=== PATIENT | male | born 1950 | race Hispanic/Latino ===

== ENCOUNTER 2019-04-14 07:18 | Inpatient (IN) | payer OTHER ==
[~2019-04-14] VITALS: Ht 172.7 cm; Wt 78.6 kg
[~2019-04-14 07:18] MED LIST: ASPI-1181 PO; ATOR40TA71 PO; HYDR25TA PO; LISI40TA4 PO; METO-408 PO
[2019-04-14 07:56] LABS: HEMATOCRIT 42.1 % (42-54); LYMPHOCYTES % (AUTO) 20.2 % (21.0-51.0); MEAN CORPUSCULAR HEMOGLOBIN 29.8 pg (27.0-33.0); MEAN CORPUSCULAR HGB CONC 33.5 g/dL (32.0-36.0); MEAN CORPUSCULAR VOLUME 89.1 fL (79-99); MONOCYTES % (AUTO) 8.5 % (3.0-13.0); NEUTROPHILS % (AUTO) 66.3 % (40.0-77.0); NUCLEATED RED BLOOD CELLS 0.1 % (0.0-0.19); PLATELET COUNT (AUTO) 167 K/uL (130-400); RED BLOOD CELL COUNT(AUTO) 4.72 MIL/uL (4.50-6.20); RED CELL DISTRIBUTION WIDTH 15.5 % (11.0-15.5); WHITE BLOOD COUNT (AUTO) 7.3 K/uL (4.8-10.8)
[2019-04-14 08:07] LABS: POTASSIUM 3.1 mmol/L (3.5-5.1)
[2019-04-14] MEDS ORDERED: FUROSEMIDE 10 MG/ML 2ML VIAL ONE ×2 (08:07→23:53)
[2019-04-14] MEDS ORDERED: FUROSEMIDE 10 MG/ML 4ML VIAL ONE (08:08)
[2019-04-14] MEDS ORDERED: ASPIRIN 325 MG TABLET ONE (08:08)
[2019-04-14 08:10] LABS: INR 1.15 (0.85-1.15)
[2019-04-14 08:14] LABS: BILIRUBIN,TOTAL 1.1 mg/dL (0.2-1.0)
[2019-04-14 09:15] LABS: B-TYPE NATRIURETIC PEPTIDE 1100 pg/mL (0-100)
[2019-04-14 09:22] LABS: APPEARANCE,URINE Clear (CLEAR); BILIRUBIN,URINE Small (NEGATIVE); COLOR,URINE Dark Yellow (YELLOW); GLUCOSE, URINE (UA) Negative (NEGATIVE); KETONES,URINE Negative (NEGATIVE); LEUKOCYTE ESTERASE ,URINE Negative (NEGATIVE); NITRATE,URINE Negative (NEGATIVE); OCCULT BLOOD,URINE Negative (NEGATIVE); PROTEIN,URINE POS 2+ mg/dL (NEGATIVE)
[2019-04-14 09:40] LABS: BACTERIA,URINE Few /HPF (None Seen); RBC,URINE 0-1 /HPF (0-1); SQUAMOUS EPITHELIAL CELL,UR 0-2 /HPF (0-2)
[2019-04-14] MEDS ORDERED: NITROGLYCERIN 1GM/1 INCH PACKET TD ONE (10:01)
[2019-04-14] MEDS ORDERED: POTASSIUM BICARB/CIT AC 25 MEQ TABLET.EFF ONE (10:02)
[2019-04-14 10:11] LABS: AMPHET/METH SCREEN,URINE NEGATIVE (NEGATIVE); BARBITURATE SCREEN, URINE NEGATIVE (NEGATIVE); BENZODIAZEPINES SCREEN,URINE NEGATIVE (NEGATIVE); CANNABINOID SCREEN,URINE NEGATIVE (NEGATIVE); COCAINE SCREEN,URINE NEGATIVE (NEGATIVE); OPIATE SCREEN,URINE NEGATIVE (NEGATIVE); PHENCYCLIDINE SCREEN,URINE NEGATIVE (NEGATIVE)
[2019-04-14] MEDS ORDERED: HYDRALAZINE HCL 20 MG/ML VIAL ONE (10:13)
[2019-04-14] MEDS ORDERED: ACETAMINOPHEN 325 MG TAB PO PRN (11:00)
[2019-04-14] MEDS ORDERED: ONDANSETRON HCL 4 MG/2 ML VIAL IVP PRN (11:00)
[2019-04-14] MEDS: FUROSEMIDE 10 MG/ML 2ML VIAL IV SCH ×2 (12:00→20:00)
[2019-04-14] MEDS ORDERED: PHARMACY COMMUNICATION MISC SCH (13:15)
[2019-04-14] MEDS ORDERED: METOPROLOL TARTRATE 25 MG TAB PO SCH (13:23)
[2019-04-14] MEDS ORDERED: ENOXAPARIN SODIUM 100 MG/1 ML SQ ONE (15:22)
[2019-04-14] MEDS ORDERED: METOPROLOL TARTRATE 25 MG TAB ONE (15:22)
[2019-04-14 15:45] LABS: CREATINE KINASE, TOTAL 130 U/L (21-232); MYOGLOBIN 63 ng/mL (10-92); TROPONIN I < 0.04 ng/mL (0.00-0.06)
[2019-04-14] MEDS: METOPROLOL TARTRATE 25 MG TAB PO SCH (21:00)
[2019-04-14] MEDS: FAMOTIDINE 20MG TAB 20 MG TAB PO SCH (21:00)
[2019-04-14] MEDS: ATORVASTATIN CALCIUM 40 MG TABLET PO SCH (21:00)
[2019-04-14] MEDS ORDERED: FUROSEMIDE 10 MG/ML 2ML VIAL IV SCH (21:00)
[2019-04-14] MEDS ORDERED: FAMOTIDINE/PF 20 MG/2 ML VIAL IV ONE (23:54)
[2019-04-15] VITALS (8 sets, daily range): BP systolic 117–162; BP diastolic 73–107
[2019-04-15 00:39] LABS: TROPONIN I 0.05 ng/mL (0.00-0.06)
[2019-04-15] MEDS ORDERED: FUROSEMIDE 10 MG/ML 2ML VIAL IV SCH ×2 (06:00→08:00)
[2019-04-15 06:22] LABS: BASOPHILS % (AUTO) 0.7 % (0.0-5.0); EOSINOPHILS % (AUTO) 4.4 % (0.0-8.0); HEMATOCRIT 38.4 % (42-54); MEAN CORPUSCULAR HEMOGLOBIN 30.8 pg (27.0-33.0); MEAN CORPUSCULAR HGB CONC 34.7 g/dL (32.0-36.0); MEAN CORPUSCULAR VOLUME 88.8 fL (79-99); MONOCYTES % (AUTO) 8.5 % (3.0-13.0); NEUTROPHILS % (AUTO) 68.4 % (40.0-77.0); NUCLEATED RED BLOOD CELLS 0.1 % (0.0-0.19); PLATELET COUNT (AUTO) 160 K/uL (130-400); RED BLOOD CELL COUNT(AUTO) 4.32 MIL/uL (4.50-6.20); RED CELL DISTRIBUTION WIDTH 15.8 % (11.0-15.5); WHITE BLOOD COUNT (AUTO) 7.4 K/uL (4.8-10.8)
[2019-04-15 06:26] LABS: B-TYPE NATRIURETIC PEPTIDE 656 pg/mL (0-100)
[2019-04-15 06:40] LABS: CREATINE KINASE, TOTAL 98 U/L (21-232); MYOGLOBIN 66 ng/mL (10-92); TROPONIN I < 0.04 ng/mL (0.00-0.06)
[2019-04-15 06:45] LABS: CREATININE 1.1 mg/dL (0.5-1.5)
[2019-04-15 06:53] LABS: POTASSIUM 2.9 mmol/L (3.5-5.1)
[2019-04-15] MEDS ORDERED: POTASSIUM CHLORIDE 20MEQ/100ML 100 ML IV PRN (08:00)
[2019-04-15] MEDS ORDERED: POTASSIUM CHLORIDE 10% ELIXIR 20 MEQ/15 ML UDCUP PO PRN (08:00)
[2019-04-15] MEDS ORDERED: LIDOCAINE HCL-MPF 1% 2ML VIAL IV PRN (08:00)
[2019-04-15] MEDS ORDERED: ENOXAPARIN SODIUM 30 MG/0.3 ML SQ SCH (09:00)
[2019-04-15] MEDS: METOPROLOL TARTRATE 25 MG TAB PO SCH ×2 (09:27→21:32)
[2019-04-15] MEDS: FAMOTIDINE 20MG TAB 20 MG TAB PO SCH ×2 (09:27→21:32)
[2019-04-15] MEDS: ASPIRIN 81 MG EC TAB PO SCH (09:27)
[2019-04-15] MEDS: POTASSIUM CHLORIDE 20 MEQ ERTAB PO PRN ×4 (09:28→17:29)
[2019-04-15] MEDS: ENOXAPARIN SODIUM 80 MG/0.8 ML SQ SCH ×2 (09:28→21:36)
--- NOTE | 2019-04-15 13:10 | NUR ---
D/C PLAN CM spoke to pt regarding d/c planning. Pt is ind. and lives with spouse. States spouse can assist in care as needed. Plan to home. No needs verbalized or identified. CM to f/u. Addendum: 04/15/19 at 1311 by YOLANDA KENNEDY CM Amended: Links added.
[2019-04-15] MEDS: LISINOPRIL 5 MG TABLET PO SCH (21:32)
[2019-04-15] MEDS: ATORVASTATIN CALCIUM 40 MG TABLET PO SCH (21:32)
[2019-04-16] VITALS (7 sets, daily range): BP systolic 106–184; BP diastolic 67–113
[2019-04-16 04:53] LABS: CREATININE 1.1 mg/dL (0.5-1.5); POTASSIUM 3.4 mmol/L (3.5-5.1)
[2019-04-16] MEDS: FAMOTIDINE 20MG TAB 20 MG TAB PO SCH ×2 (09:10→21:21)
[2019-04-16] MEDS: METOPROLOL TARTRATE 25 MG TAB PO SCH ×2 (09:10→21:21)
[2019-04-16] MEDS: ASPIRIN 81 MG EC TAB PO SCH (09:10)
[2019-04-16] MEDS: LISINOPRIL 5 MG TABLET PO SCH ×2 (09:11→21:21)
[2019-04-16] MEDS: ENOXAPARIN SODIUM 80 MG/0.8 ML SQ SCH ×2 (09:12→21:22)
[2019-04-16] MEDS ORDERED: REGADENOSON 0.4 MG/5 ML PF SYG IVP SCH (14:45)
[2019-04-16] MEDS: HYDRALAZINE HCL 20 MG/ML VIAL IV PRN ×2 (15:40→18:40)
[2019-04-16] MEDS: POTASSIUM CHLORIDE 20 MEQ ERTAB PO PRN (18:46)
[2019-04-16] MEDS: ATORVASTATIN CALCIUM 40 MG TABLET PO SCH (21:21)
[2019-04-17 04:35] VITALS: BP 147/93
[2019-04-17 07:59] VITALS: BP 145/95
[2019-04-17] MEDS ORDERED: FUROSEMIDE 10 MG/ML 2ML VIAL IV SCH (08:15)
[2019-04-17] MEDS: FUROSEMIDE 10 MG/ML 2ML VIAL IV SCH ×4 (08:30→21:00)
--- NOTE | 2019-04-17 08:30 | NUR ---
AM ASSESSMENT PT SITTING IN HAIR, WATCHING TV. A/O X 3. NO SOB. NO DISTRESS NOTED. DENIES CHEST PAIN OR DISCOMFORT. DENIES PALPITATIONS. TELE: AFIB 70s. DENIES N/V AND/ OR DIARRHEA. UP AD JENA. INSTRUCTED TO CALL FOR ASSISTANCE. CALL DIANA W/IN REACH.
[2019-04-17] MEDS: FAMOTIDINE 20MG TAB 20 MG TAB PO SCH ×2 (09:22→21:01)
[2019-04-17] MEDS: LISINOPRIL 5 MG TABLET PO SCH ×2 (09:22→21:01)
[2019-04-17] MEDS: METOPROLOL TARTRATE 25 MG TAB PO SCH ×2 (09:22→21:02)
[2019-04-17] MEDS: APIXABAN 5 MG TABLET PO SCH ×2 (09:22→21:01)
[2019-04-17] MEDS: SPIRONOLACTONE 25 MG TAB PO SCH (09:23)
[2019-04-17] MEDS: ASPIRIN 81 MG EC TAB PO SCH (09:23)
[2019-04-17] MEDS: POTASSIUM CHLORIDE 20 MEQ ERTAB PO PRN ×2 (09:24→14:04)
[2019-04-17 12:16] VITALS: BP 156/88
[2019-04-17 16:09] VITALS: BP 133/74
[2019-04-17 19:50] VITALS: BP 131/101
[2019-04-17] MEDS: ATORVASTATIN CALCIUM 40 MG TABLET PO SCH (21:01)
[2019-04-18 00:06] VITALS: BP 153/72
[2019-04-18 03:24] VITALS: BP 153/57
[2019-04-18 04:29] LABS: BASOPHILS % (AUTO) 0.6 % (0.0-5.0); EOSINOPHILS % (AUTO) 2.3 % (0.0-8.0); HEMATOCRIT 38.9 % (42-54); LYMPHOCYTES % (AUTO) 17.1 % (21.0-51.0); MEAN CORPUSCULAR HEMOGLOBIN 30.3 pg (27.0-33.0); MEAN CORPUSCULAR HGB CONC 34.2 g/dL (32.0-36.0); MEAN CORPUSCULAR VOLUME 88.8 fL (79-99); NUCLEATED RED BLOOD CELLS 0.1 % (0.0-0.19); PLATELET COUNT (AUTO) 177 K/uL (130-400); RED BLOOD CELL COUNT(AUTO) 4.39 MIL/uL (4.50-6.20); WHITE BLOOD COUNT (AUTO) 6.9 K/uL (4.8-10.8)
[2019-04-18 04:38] LABS: CREATININE 0.9 mg/dL (0.5-1.5); MAGNESIUM 1.8 mg/dL (1.80-2.40); PHOSPHORUS 4.1 mg/dL (2.5-4.9); POTASSIUM 3.5 mmol/L (3.5-5.1)
[2019-04-18 04:52] LABS: B-TYPE NATRIURETIC PEPTIDE 531 pg/mL (0-100)
[2019-04-18] MEDS: POTASSIUM CHLORIDE 20 MEQ ERTAB PO PRN ×3 (06:30→12:38)
[2019-04-18] MEDS ORDERED: METO-391 PO (06:46)
[2019-04-18] MEDS ORDERED: SPIR25TA PO (06:46)
[2019-04-18] MEDS ORDERED: APIX5TAB PO (06:46)
[2019-04-18] MEDS ORDERED: LISI-613 PO (06:46)
[2019-04-18 07:00] VITALS: BP 163/98
--- NOTE | 2019-04-18 07:23 | NUR ---
Patient remained stable, bedside report given to incoming NOD using SBAr all questions answered.
--- NOTE | 2019-04-18 07:30 | NUR ---
AM ASSESSMENT PT AMBULATING IN RM. A/O X 3. NO SOB. NO DISTRESS NOTED. DENIES CHEST PAIN OR DISCOMFORT. DENIES PALPITATIONS. TELE: AFIB 70-80s. DENIES N/V AND/OR DIARRHEA. UP AD JENA. PT CLEARED BY DR HERNANDEZ TO DC HOME TODAY. PT INFORMED DR GOMEZ PRIMARY PHYSICIAN AND PENDING DC ORDER FROM . UP AD JENA. INSTRUCTED TO CALL FOR ASSISTANCE. CALL DIANA W/IN ILIA.
[2019-04-18] MEDS: SPIRONOLACTONE 25 MG TAB PO SCH (08:58)
[2019-04-18] MEDS: FAMOTIDINE 20MG TAB 20 MG TAB PO SCH (08:58)
[2019-04-18] MEDS: APIXABAN 5 MG TABLET PO SCH (08:58)
[2019-04-18] MEDS: ASPIRIN 81 MG EC TAB PO SCH (08:59)
[2019-04-18] MEDS: LISINOPRIL 5 MG TABLET PO SCH (08:59)
[2019-04-18] MEDS: METOPROLOL TARTRATE 25 MG TAB PO SCH (08:59)
[2019-04-18] MEDS ORDERED: FUROSEMIDE 40 MG TABLET PO SCH (09:00)
[2019-04-18 11:00] VITALS: BP 149/88
--- NOTE | 2019-04-18 14:25 | NUR ---
DISCHARGE VERBAL & WRITTEN DISCHARGE INSTRUCTIONS REVIEWED & GIVEN TO PT & PT'S SON. QUESTIONS ENCOURAGED & CLARIFIED. PROPER CARE & MGT OF CHF REVIEWED & REINFORCED. NEW PRESCRIBED MEDICATIONS & DOSE CHANGES IN HOME MEDICATIONS REVIEWED W/PT. PRESCRIPTION GIVEN TO PT; SIGNED COPY PLACED IN CHART. F/U APPT INFO GIVEN TO PT. TELE PILI REMOVED. IV DISCONTINUED. PT & SON TO GATHER PERSONAL BELONGINGS. WILL NOTIFY STAFF WHEN READY TO BE TAKEN TO PRIVATE VEHICLE.
--- NOTE | 2019-04-18 14:35 | NUR ---
DISCHARGE PT TAKEN TO PRIVATE VEHICLE VIA WC BY Daljit AMES PCP. SON AWAITING FOR PT IN VEHICLE. NO DISTRESS NOTED.
== END 2019-04-18 14:35 | disposition home or self-care (01) | DRG 291 ==
LOC: EDH 07:18 → EDHIP 10:06 → 2AH 04-15 01:09
PROVIDERS: ADMIT Internal Medicine; ATTEND Internal Medicine
DX: I11.0 Hypertensive heart disease with heart failure (principal); I50.21 Acute systolic (congestive) heart failure; D68.59 Other primary thrombophilia; I48.92 Unspecified atrial flutter; I48.91 Unspecified atrial fibrillation; I25.10 Atherosclerotic heart disease of native coronary artery without angina pectoris; F17.200 Nicotine dependence, unspecified, uncomplicated; E78.5 Hyperlipidemia, unspecified; E87.6 Hypokalemia; N48.1 Balanitis; M54.30 Sciatica, unspecified side; I25.5 Ischemic cardiomyopathy; Z95.1 Presence of aortocoronary bypass graft; Z82.3 Family history of stroke; Z82.49 Family history of ischemic heart disease and other diseases of the circulatory system; Z88.6 Allergy status to analgesic agent; Z88.8 Allergy status to other drugs, medicaments and biological substances; Z91.19 Patient's noncompliance with other medical treatment and regimen; I25.2 Old myocardial infarction; Z95.5 Presence of coronary angioplasty implant and graft; Z79.82 Long term (current) use of aspirin; Z79.01 Long term (current) use of anticoagulants; Z79.899 Other long term (current) drug therapy
CPT/HCPCS: 36415; 71045; 71046; 78452; 80048; 80053; 80061; 80305; 81001; 82550; 83735; 83874; 83880; 84100; 84443; 84484; 85025; 85610; 85730; 93005; 93017; 93306; 96374; 99291; A9500; G0378; J0360; J1650; J1940; J2785; J3490

== ENCOUNTER → 2019-06-30 | Outpatient (CLI) | payer OTHER ==
[~2019-06-30] MED LIST changes: +APIX5TAB PO; -HYDR25TA PO; +LISI-613 PO; -LISI40TA4 PO; +METO-391 PO; -METO-408 PO; +SPIR25TA PO
== END | disposition home or self-care (01) ==
LOC: SHCH 11:06
PROVIDERS: ATTEND Internal Medicine Cardiovascular Disease
DX: I08.3 Combined rheumatic disorders of mitral, aortic and tricuspid valves (principal); I25.5 Ischemic cardiomyopathy
CPT/HCPCS: 93306

== ENCOUNTER 2019-08-27 06:08 | Inpatient (IN) | payer OTHER ==
[~2019-08-27] VITALS: Ht 172.7 cm; Wt 80.6 kg
[2019-08-27] MEDS ORDERED: NITROGLYCERIN 1GM/1 INCH PACKET TD ONE ×4 (06:22→15:03)
[2019-08-27] MEDS ORDERED: ASPIRIN 325 MG TABLET ONE (06:22)
[2019-08-27] MEDS ORDERED: FUROSEMIDE 10 MG/ML 4ML VIAL ONE (06:22)
[2019-08-27 06:39] LABS: BASOPHILS % (AUTO) 0.3 % (0.0-5.0); EOSINOPHILS % (AUTO) 0.4 % (0.0-8.0); HEMATOCRIT 42.9 % (42-54); LYMPHOCYTES % (AUTO) 9.7 % (21.0-51.0); MEAN CORPUSCULAR HEMOGLOBIN 28.4 pg (27.0-33.0); MEAN CORPUSCULAR HGB CONC 32.2 g/dL (32.0-36.0); MEAN CORPUSCULAR VOLUME 88.3 fL (79-99); MONOCYTES % (AUTO) 9.3 % (3.0-13.0); NEUTROPHILS % (AUTO) 79.8 % (40.0-77.0); PLATELET COUNT (AUTO) 218 K/uL (130-400); RED BLOOD CELL COUNT(AUTO) 4.86 MIL/uL (4.50-6.20); RED CELL DISTRIBUTION WIDTH 15.9 % (11.0-15.5); WHITE BLOOD COUNT (AUTO) 10.5 K/uL (4.8-10.8)
[2019-08-27 06:51] LABS: INR 1.28 (0.85-1.15); POTASSIUM 3.5 mmol/L (3.5-5.1); PROTHROMBIN TIME 13.7 SEC (9.6-11.6)
[2019-08-27] MEDS ORDERED: IPRATROPIUM/ALBUTEROL SULFATE 3 ML SOLUTION IH ONE ×4 (06:53→21:15)
[2019-08-27] MEDS ORDERED: CEFTRIAXONE SODIUM 1 GM ONE (07:03)
[2019-08-27] MEDS ORDERED: OSELTAMIVIR PHOSPHATE 75 MG CAP ONE (07:03)
[2019-08-27 07:10] LABS: ALBUMIN 3.4 g/dL (3.5-5.0); BILIRUBIN,TOTAL 1.3 mg/dL (0.2-1.0); CREATININE 1.3 mg/dL (0.5-1.5); TOTAL PROTEIN, SERUM 6.6 g/dL (6.0-8.3)
[2019-08-27] MEDS ORDERED: AZITHROMYCIN 500MG+NS 250ML 250 ML IV ONE (07:27)
[2019-08-27] MEDS ORDERED: POTASSIUM CHLORIDE 20 MEQ ERTAB PO ONE (08:17)
[2019-08-27] MEDS ORDERED: FAMOTIDINE 20MG TAB 20 MG TAB ONE (08:24)
[2019-08-27] MEDS ORDERED: ENOXAPARIN SODIUM 40 MG/0.4 ML SYRINGE SQ ONE (08:25)
[2019-08-27] MEDS ORDERED: FURO40TA5 PO (08:55)
[2019-08-27] MEDS ORDERED: TAMS-1 PO (08:55)
[2019-08-27] MEDS: AZITHROMYCIN 500MG+NS 250ML 250 ML IV SCH (10:00)
[2019-08-27] MEDS ORDERED: ACETAMINOPHEN 325 MG TAB PO PRN (10:00)
[2019-08-27] MEDS ORDERED: ONDANSETRON HCL 4 MG/2 ML VIAL IVP PRN (10:00)
[2019-08-27] MEDS: IPRATROPIUM/ALBUTEROL SULFATE 3 ML SOLUTION IH SCH ×4 (10:36→21:31)
[2019-08-27] MEDS ORDERED: NITROGLYCERIN 0.4 MG SL TAB SL PRN (13:30)
[2019-08-27 14:49] LABS: TROPONIN I 0.07 ng/mL (0.00-0.06)
[2019-08-27] MEDS ORDERED: NITROGLYCERIN 1GM/1 INCH PACKET TD SCH (17:00)
[2019-08-27] MEDS ORDERED: LISINOPRIL 5 MG TABLET ONE (17:09)
[2019-08-27] MEDS ORDERED: SPIRONOLACTONE 25 MG TAB ONE (17:09)
[2019-08-27] MEDS ORDERED: APIXABAN 2.5 MG TABLET PO ONE (17:10)
[2019-08-27] MEDS ORDERED: ACETAMINOPHEN 325 MG TAB ONE (17:22)
[2019-08-27] MEDS ORDERED: POTASSIUM CHLORIDE 20MEQ/100ML 100 ML IV PRN (17:45)
[2019-08-27] MEDS ORDERED: POTASSIUM CHLORIDE 10% ELIXIR 20 MEQ/15 ML UDCUP PO PRN (17:45)
[2019-08-27] MEDS ORDERED: LIDOCAINE HCL-MPF 1% 2ML VIAL IJ PRN (17:45)
[2019-08-27] MEDS ORDERED: SODIUM CHLORIDE 0.9% 10 ML VIAL IVP PRN (17:45)
[2019-08-27] MEDS: FAMOTIDINE 20MG TAB 20 MG TAB PO SCH (21:00)
[2019-08-27] MEDS: OSELTAMIVIR PHOSPHATE 75 MG CAP PO SCH (21:00)
[2019-08-27] MEDS: ATORVASTATIN CALCIUM 20 MG TABLET PO SCH (21:00)
[2019-08-27] MEDS ORDERED: ATORVASTATIN CALCIUM 20 MG TABLET ONE (23:30)
[2019-08-27 23:33] LABS: TROPONIN I 0.09 ng/mL (0.00-0.06)
[2019-08-28] MEDS ORDERED: IPRATROPIUM/ALBUTEROL SULFATE 3 ML SOLUTION IH ONE ×4 (01:13→13:55)
[2019-08-28] MEDS: IPRATROPIUM/ALBUTEROL SULFATE 3 ML SOLUTION IH SCH ×5 (01:47→19:36)
[2019-08-28] MEDS ORDERED: HYDRALAZINE HCL 20 MG/ML VIAL ONE (03:45)
[2019-08-28 06:56] LABS: BASOPHILS % (AUTO) 0.4 % (0.0-5.0); HEMATOCRIT 37.2 % (42-54); LYMPHOCYTES % (AUTO) 10.5 % (21.0-51.0); MEAN CORPUSCULAR HEMOGLOBIN 29.1 pg (27.0-33.0); MEAN CORPUSCULAR HGB CONC 33.1 g/dL (32.0-36.0); MEAN CORPUSCULAR VOLUME 88.2 fL (79-99); MONOCYTES % (AUTO) 11.7 % (3.0-13.0); NEUTROPHILS % (AUTO) 76.7 % (40.0-77.0); PLATELET COUNT (AUTO) 167 K/uL (130-400); RED BLOOD CELL COUNT(AUTO) 4.22 MIL/uL (4.50-6.20); WHITE BLOOD COUNT (AUTO) 7.4 K/uL (4.8-10.8)
[2019-08-28 07:15] LABS: CREATININE 1.1 mg/dL (0.5-1.5)
[2019-08-28 07:23] LABS: B-TYPE NATRIURETIC PEPTIDE 848 pg/mL (0-100)
[2019-08-28] MEDS ORDERED: MAGNESIUM 2GM PREMIX 50ML 50 ML IV SCH (07:45)
[2019-08-28] MEDS: NITROGLYCERIN 1GM/1 INCH PACKET TD SCH ×3 (08:00→23:39)
[2019-08-28] MEDS: CEFTRIAXONE SODIUM 1 GM IVP SCH (08:45)
[2019-08-28] MEDS ORDERED: APIXABAN 5 MG TABLET PO SCH (09:00)
[2019-08-28] MEDS ORDERED: ENOXAPARIN SODIUM 30 MG/0.3 ML SQ SCH (09:00)
[2019-08-28] MEDS: OSELTAMIVIR PHOSPHATE 75 MG CAP PO SCH ×2 (09:00→20:03)
[2019-08-28] MEDS: TAMSULOSIN HCL 0.4 MG CAP.ER.24H PO SCH (09:00)
[2019-08-28] MEDS: ASPIRIN 81MG TAB.CHEW PO SCH (09:00)
[2019-08-28] MEDS: LISINOPRIL 20 MG TABLET PO SCH (09:00)
[2019-08-28] MEDS: FAMOTIDINE 20MG TAB 20 MG TAB PO SCH ×2 (09:00→20:03)
[2019-08-28] MEDS: SPIRONOLACTONE 25 MG TAB PO SCH (09:00)
[2019-08-28] MEDS ORDERED: FUROSEMIDE 10 MG/ML 2ML VIAL IVP SCH (10:00)
[2019-08-28] MEDS: AZITHROMYCIN 500MG+NS 250ML 250 ML IV SCH (10:00)
[2019-08-28] MEDS: METOPROLOL SUCCINATE 50 MG TAB.SR.24H PO SCH (10:15)
[2019-08-28] MEDS ORDERED: POTASSIUM CHLORIDE 20 MEQ ERTAB PO ONE ×3 (10:50→16:09)
[2019-08-28] MEDS ORDERED: FUROSEMIDE 10 MG/ML 4ML VIAL ONE (10:50)
[2019-08-28] MEDS ORDERED: ASPIRIN 81MG TAB.CHEW ONE (10:50)
[2019-08-28] MEDS ORDERED: NITROGLYCERIN 1GM/1 INCH PACKET TD ONE (10:51)
[2019-08-28] MEDS ORDERED: OSELTAMIVIR PHOSPHATE 75 MG CAP ONE (10:52)
[2019-08-28] MEDS ORDERED: APIXABAN 2.5 MG TABLET PO ONE (10:57)
[2019-08-28] MEDS ORDERED: SPIRONOLACTONE 25 MG TAB ONE (11:23)
[2019-08-28] MEDS ORDERED: TAMSULOSIN HCL 0.4 MG CAP.ER.24H ONE (11:23)
--- NOTE | 2019-08-28 12:03 | NUR ---
INITIAL SW met with patient. Patient lives with spouse, Naya Weiss, [phone]. No home services or DME. Patient states that he needs help with ADL's at times because he becomes short of breath. Patient is able to drive. PCP is Dr. Milad Russo. Pharmacy is [facility] in [place]. DCP is home. Addendum: 08/28/19 at 1205 by J CARLOS WRIGHT SS Amended: Links added.
[2019-08-28] MEDS ORDERED: LISINOPRIL 5 MG TABLET ONE (13:30)
[2019-08-28] MEDS ORDERED: LIDOCAINE HCL-MPF 1% 2ML VIAL ONE (16:09)
[2019-08-28] MEDS ORDERED: POTASSIUM CHLORIDE 20MEQ/100ML 100 ML IV ONE (16:09)
--- NOTE | 2019-08-28 17:20 | NUR ---
ARRIVAL TO FLOOR ROOM 204. PT IS AAOX3 DENIES CP DENIES SOB DENIES NV NO COMPLAINTS. ARRIVED WITH ORDERS. CALL LIGHT WITHIN REACH. TELE PACK PLACED ON PATIENT.
[2019-08-28 17:30] VITALS: BP 150/89
[2019-08-28] MEDS: APIXABAN 5 MG TABLET PO SCH (20:03)
[2019-08-28] MEDS: ATORVASTATIN CALCIUM 20 MG TABLET PO SCH (20:03)
[2019-08-28 20:21] VITALS: BP 148/94
[2019-08-28] MEDS: SODIUM CHLORIDE 45 ML SPRY NS SCH (21:29)
[2019-08-28] MEDS ORDERED: SODIUM CHLORIDE 45 ML SPRY NS PRN (21:30)
[2019-08-28] MEDS: FUROSEMIDE 10 MG/ML 4ML VIAL IVP SCH (23:37)
[2019-08-28] MEDS: POTASSIUM CHLORIDE 20 MEQ ERTAB PO PRN (23:39)
[2019-08-29] VITALS: BP 139/86
--- NOTE | 2019-08-29 | NUR ---
PT HAS BEEN STABLE. VOIDING WELL. STRICT I/O'S. PT STATES NO CHEST PAIN. NO SOB. NO DISTRESS NOTED. UA COLLECTED.
[2019-08-29 00:08] LABS: APPEARANCE,URINE CLEAR (CLEAR); BILIRUBIN,URINE Negative (NEGATIVE); COLOR,URINE Yellow (YELLOW); GLUCOSE, URINE (UA) Negative (NEGATIVE); KETONES,URINE Negative (NEGATIVE); LEUKOCYTE ESTERASE ,URINE Negative (NEGATIVE); NITRATE,URINE Negative (NEGATIVE); OCCULT BLOOD,URINE Negative (NEGATIVE); PH,URINE 6.5 (5.0-8.0); PROTEIN,URINE POS 2+ mg/dL (NEGATIVE)
[2019-08-29 00:17] LABS: BACTERIA,URINE Rare /HPF (None Seen); HYALINE CASTS, URINE 0-1 /LPF (0-1 /LPF); RBC,URINE 0-1 /HPF (0-1); SQUAMOUS EPITHELIAL CELL,UR 0-2 /HPF (0-2)
[2019-08-29] MEDS: IPRATROPIUM/ALBUTEROL SULFATE 3 ML SOLUTION IH SCH ×7 (00:35→21:28)
[2019-08-29 04:13] VITALS: BP 135/86
[2019-08-29 05:42] LABS: HEMATOCRIT 35.9 % (42-54); MEAN CORPUSCULAR HEMOGLOBIN 28.1 pg (27.0-33.0); MEAN CORPUSCULAR HGB CONC 31.8 g/dL (32.0-36.0); MEAN CORPUSCULAR VOLUME 88.6 fL (79-99); PLATELET COUNT (AUTO) 163 K/uL (130-400); RED BLOOD CELL COUNT(AUTO) 4.05 MIL/uL (4.50-6.20); RED CELL DISTRIBUTION WIDTH 16.1 % (11.0-15.5); WHITE BLOOD COUNT (AUTO) 5.3 K/uL (4.8-10.8)
[2019-08-29 06:25] LABS: CREATININE 1.1 mg/dL (0.5-1.5); POTASSIUM 3.5 mmol/L (3.5-5.1)
[2019-08-29 07:15] LABS: EOSINOPHILS % (MANUAL) 2 % (1-6); LYMPHOCYTES % (MANUAL) 19 % (22-44); MAN.DIFF COMMENT-IMPRESSION MANUAL DIFFERENTIAL; MONOCYTES % (MANUAL) 21 % (2-9); PLATELET MORPHOLOGY COMMENT ADEQUATE; SEGMENTED NEUTROPHILS % 58 % (40-70)
[2019-08-29] MEDS: APIXABAN 5 MG TABLET PO SCH ×2 (07:34→19:54)
[2019-08-29] MEDS: TAMSULOSIN HCL 0.4 MG CAP.ER.24H PO SCH (07:34)
[2019-08-29] MEDS: FAMOTIDINE 20MG TAB 20 MG TAB PO SCH ×2 (07:34→19:54)
[2019-08-29] MEDS: METOPROLOL SUCCINATE 50 MG TAB.SR.24H PO SCH (07:34)
[2019-08-29] MEDS: OSELTAMIVIR PHOSPHATE 75 MG CAP PO SCH ×2 (07:34→19:54)
[2019-08-29] MEDS: LISINOPRIL 20 MG TABLET PO SCH (07:34)
[2019-08-29] MEDS: ASPIRIN 81MG TAB.CHEW PO SCH (07:35)
[2019-08-29] MEDS: SPIRONOLACTONE 25 MG TAB PO SCH (07:35)
[2019-08-29] MEDS: CEFTRIAXONE SODIUM 1 GM IVP SCH (07:35)
[2019-08-29] MEDS: NITROGLYCERIN 1GM/1 INCH PACKET TD SCH ×2 (07:35→15:04)
[2019-08-29 07:50] VITALS: BP 144/110
--- NOTE | 2019-08-29 08:30 | NUR ---
ASSESSMENT PT IS AAOX3 DENIES CP DENIES SOB DENIES NV NO COMPLAINTS RESTING IN BED, CALL LIGHT WITHIN REACH. DROPLET ISOLATION MAINTAINED.
[2019-08-29 11:52] VITALS: BP 134/82
[2019-08-29] MEDS: FUROSEMIDE 10 MG/ML 4ML VIAL IVP SCH (15:09)
[2019-08-29] MEDS: AZITHROMYCIN 500MG+NS 250ML 250 ML IV SCH (15:10)
[2019-08-29 15:40] VITALS: BP 139/89
[2019-08-29] MEDS: ATORVASTATIN CALCIUM 20 MG TABLET PO SCH (19:55)
[2019-08-29 20:35] VITALS: BP 143/93
[2019-08-29] MEDS: SODIUM CHLORIDE 45 ML SPRY NS SCH (20:45)
[2019-08-29] MEDS ORDERED: SODIUM CHLORIDE 3% FOR INHALATION 4 ML/AMP VIAL.NEB IH ONE (21:17)
[2019-08-30] VITALS: BP 139/88
[2019-08-30] MEDS: NITROGLYCERIN 1GM/1 INCH PACKET TD SCH ×2 (00:44→09:02)
[2019-08-30] MEDS ORDERED: SODIUM CHLORIDE 3% FOR INHALATION 4 ML/AMP VIAL.NEB IH ONE ×2 (01:03→04:58)
[2019-08-30] MEDS: IPRATROPIUM/ALBUTEROL SULFATE 3 ML SOLUTION IH SCH ×3 (01:07→09:55)
[2019-08-30] MEDS: FUROSEMIDE 10 MG/ML 4ML VIAL IVP SCH (03:58)
[2019-08-30 04:13] VITALS: BP 140/101
[2019-08-30 04:25] LABS: BASOPHILS % (AUTO) 0.7 % (0.0-5.0); EOSINOPHILS % (AUTO) 4.5 % (0.0-8.0); HEMATOCRIT 34.9 % (42-54); LYMPHOCYTES % (AUTO) 22.3 % (21.0-51.0); MEAN CORPUSCULAR HEMOGLOBIN 28.1 pg (27.0-33.0); MEAN CORPUSCULAR HGB CONC 32.1 g/dL (32.0-36.0); MEAN CORPUSCULAR VOLUME 87.7 fL (79-99); MONOCYTES % (AUTO) 8.4 % (3.0-13.0); NEUTROPHILS % (AUTO) 63.9 % (40.0-77.0); PLATELET COUNT (AUTO) 167 K/uL (130-400); RED BLOOD CELL COUNT(AUTO) 3.98 MIL/uL (4.50-6.20); RED CELL DISTRIBUTION WIDTH 15.7 % (11.0-15.5); WHITE BLOOD COUNT (AUTO) 5.4 K/uL (4.8-10.8)
[2019-08-30 04:36] LABS: MAGNESIUM 2.1 mg/dL (1.80-2.40); PHOSPHORUS 3.5 mg/dL (2.5-4.9); POTASSIUM 3.3 mmol/L (3.5-5.1)
[2019-08-30 04:49] LABS: B-TYPE NATRIURETIC PEPTIDE 634 pg/mL (0-100)
[2019-08-30] MEDS: POTASSIUM CHLORIDE 20 MEQ ERTAB PO PRN (06:21)
[2019-08-30 07:41] VITALS: BP 146/80
[2019-08-30] MEDS: SPIRONOLACTONE 25 MG TAB PO SCH (08:59)
[2019-08-30] MEDS: FAMOTIDINE 20MG TAB 20 MG TAB PO SCH (08:59)
[2019-08-30] MEDS: TAMSULOSIN HCL 0.4 MG CAP.ER.24H PO SCH (08:59)
[2019-08-30] MEDS: OSELTAMIVIR PHOSPHATE 75 MG CAP PO SCH (08:59)
[2019-08-30] MEDS: METOPROLOL SUCCINATE 50 MG TAB.SR.24H PO SCH (09:00)
[2019-08-30] MEDS: LISINOPRIL 20 MG TABLET PO SCH (09:00)
[2019-08-30] MEDS: APIXABAN 5 MG TABLET PO SCH (09:00)
[2019-08-30] MEDS ORDERED: FUROSEMIDE 40 MG TABLET PO SCH (09:00)
[2019-08-30] MEDS: ASPIRIN 81MG TAB.CHEW PO SCH (09:01)
[2019-08-30] MEDS: CEFTRIAXONE SODIUM 1 GM IVP SCH (09:02)
[2019-08-30] MEDS: AZITHROMYCIN 500MG+NS 250ML 250 ML IV SCH (09:10)
--- NOTE | 2019-08-30 10:30 | NUR ---
RECEIVED REPORT FROM AUREA NIXON AND TOOK OVER CARE OF PATIENT.
[2019-08-30 11:42] VITALS: BP 136/73
[2019-08-30] MEDS ORDERED: FURO40TA7 PO (12:03)
--- NOTE | 2019-08-30 13:28 | NUR ---
GIVEN DISMISSAL INSTRUCTIONS, VERBALIZED UNDERSTANDING. REMOVED SALINE LOCK FROM RIGHT ARM, IV SITE WITHOUT REDNESS NOTED. REMOVED TELE PACK. TAKEN T PRIVATE CAR ALONG WITH PERSONAL BELONGINGS VIA WHEELCHAIR BY GERRY MAKI.
== END 2019-08-30 13:38 | disposition home or self-care (01) | DRG 291 ==
LOC: EDH 06:08 → EDHIP 06:52 → 2AH 08-28 17:21
PROVIDERS: ADMIT Family Medicine; ATTEND Family Medicine
DX: I11.0 Hypertensive heart disease with heart failure (principal); J96.01 Acute respiratory failure with hypoxia; I48.21 Permanent atrial fibrillation; J44.0 Chronic obstructive pulmonary disease with (acute) lower respiratory infection; N17.9 Acute kidney failure, unspecified; J44.1 Chronic obstructive pulmonary disease with (acute) exacerbation; I50.43 Acute on chronic combined systolic (congestive) and diastolic (congestive) heart failure; I25.10 Atherosclerotic heart disease of native coronary artery without angina pectoris; J20.9 Acute bronchitis, unspecified; I25.5 Ischemic cardiomyopathy; E78.00 Pure hypercholesterolemia, unspecified; E78.5 Hyperlipidemia, unspecified; I08.1 Rheumatic disorders of both mitral and tricuspid valves; I45.10 Unspecified right bundle-branch block; G89.29 Other chronic pain; M54.9 Dorsalgia, unspecified; Z95.1 Presence of aortocoronary bypass graft; I25.2 Old myocardial infarction; Z79.01 Long term (current) use of anticoagulants; Z82.3 Family history of stroke; Z82.49 Family history of ischemic heart disease and other diseases of the circulatory system; Z87.891 Personal history of nicotine dependence; Z95.5 Presence of coronary angioplasty implant and graft
CPT/HCPCS: 36415; 71045; 80048; 80053; 81001; 82550; 83605; 83735; 83874; 83880; 84100; 84145; 84484; 85025; 85610; 85730; 87040; 87088; 87486; 87581; 87633; 87798; 87804; 93005; 93306; 94640; 94664; G0378; J0360; J0456; J0696; J1650; J1940; J3480; J3490

== ENCOUNTER 2020-03-25 11:01 | Emergency (ER) | payer OTHER ==
[~2020-03-25 11:01] MED LIST changes: -ASPI-1181 PO; +ASPI-1443 PO; +FURO40TA7 PO; +TAMS-1 PO
[2020-03-25 11:39] LABS: BASOPHILS % (AUTO) 0.4 % (0.0-5.0); EOSINOPHILS % (AUTO) 3.2 % (0.0-8.0); HEMATOCRIT 43.9 % (42-54); LYMPHOCYTES % (AUTO) 15.2 % (21.0-51.0); MEAN CORPUSCULAR HEMOGLOBIN 29.3 pg (27.0-33.0); MEAN CORPUSCULAR HGB CONC 32.3 g/dL (32.0-36.0); MEAN CORPUSCULAR VOLUME 90.5 fL (79-99); MONOCYTES % (AUTO) 8.2 % (3.0-13.0); NEUTROPHILS % (AUTO) 72.6 % (40.0-77.0); PLATELET COUNT (AUTO) 185 K/uL (130-400); RED BLOOD CELL COUNT(AUTO) 4.85 MIL/uL (4.50-6.20); RED CELL DISTRIBUTION WIDTH 15.8 % (11.0-15.5); WHITE BLOOD COUNT (AUTO) 7.8 K/uL (4.8-10.8)
[2020-03-25 11:47] LABS: POTASSIUM 3.6 mmol/L (3.5-5.1)
[2020-03-25 11:52] LABS: ALBUMIN 3.3 g/dL (3.5-5.0); BILIRUBIN,TOTAL 1.3 mg/dL (0.2-1.0); TOTAL PROTEIN, SERUM 6.6 g/dL (6.0-8.3)
[2020-03-25 12:03] LABS: INR 1.1 (0.85-1.15); PARTIAL THROMBOPLASTIN TIME 28.2 SEC (26.3-35.5); PROTHROMBIN TIME 11.8 SEC (9.6-11.6)
[2020-03-25 12:47] LABS: B-TYPE NATRIURETIC PEPTIDE 880 pg/mL (0-100)
[2020-03-25] MEDS ORDERED: NITROGLYCERIN 0.4 MG SL TAB SL ONE (13:11)
[2020-03-25] MEDS ORDERED: FUROSEMIDE 10 MG/ML 4ML VIAL ONE ×2 (13:11→13:50)
== END 2020-03-25 14:56 | disposition home or self-care (01) ==
LOC: EDH 11:01
DX: I11.0 Hypertensive heart disease with heart failure (principal); I50.9 Heart failure, unspecified; Z20.828 Contact with and (suspected) exposure to other viral communicable diseases; I48.91 Unspecified atrial fibrillation; Z95.0 Presence of cardiac pacemaker; Z72.0 Tobacco use
CPT/HCPCS: 36415; 71045; 80053; 82550; 83880; 84484; 85025; 85378; 85610; 85730; 87426; 93005; 96374; 99285; J1940 ×2; U0003

== ENCOUNTER → 2020-05-14 | Outpatient (CLI) | payer OTHER | END | disposition home or self-care (01) | LOC: RAH 10:03 | PROVIDERS: ATTEND Internal Medicine Cardiovascular Disease | DX: I50.20 Unspecified systolic (congestive) heart failure (principal) | CPT/HCPCS: 93306; 93356 ==

== ENCOUNTER 2020-09-23 06:54 | Emergency (ER) | payer OTHER ==
[~2020-09-23 06:54] MED LIST changes: -LISI-613 PO; +LISI20TA24 PO
== END 2020-09-23 10:45 | disposition home or self-care (01) ==
LOC: EDH 06:54
DX: D22.9 Melanocytic nevi, unspecified (principal); I10 Essential (primary) hypertension; E78.00 Pure hypercholesterolemia, unspecified; I48.91 Unspecified atrial fibrillation; I50.9 Heart failure, unspecified
CPT/HCPCS: 99281

== ENCOUNTER 2022-06-23 13:58 | Inpatient (IN) | payer OTHER ==
[~2022-06-23] VITALS: Ht 172.7 cm; Wt 86.5 kg
[2022-06-23 14:55] LABS: BASOPHILS % (AUTO) 0.6 % (0.0-5.0); EOSINOPHILS % (AUTO) 2.4 % (0.0-8.0); HEMATOCRIT 38.4 % (42-54); LYMPHOCYTES % (AUTO) 15.7 % (21.0-51.0); MEAN CORPUSCULAR HEMOGLOBIN 29.8 pg (27.0-33.0); MEAN CORPUSCULAR HGB CONC 32.8 g/dL (32.0-36.0); MEAN CORPUSCULAR VOLUME 90.8 fL (79-99); MONOCYTES % (AUTO) 6.3 % (3.0-13.0); NEUTROPHILS % (AUTO) 74.5 % (40.0-77.0); PLATELET COUNT (AUTO) 167 K/uL (130-400); RED BLOOD CELL COUNT(AUTO) 4.23 MIL/uL (4.50-6.20); RED CELL DISTRIBUTION WIDTH 15.6 % (11.0-15.5); WHITE BLOOD COUNT (AUTO) 7.8 K/uL (4.8-10.8)
[2022-06-23 15:05] LABS: CREATININE 1.2 mg/dL (0.5-1.5); POTASSIUM 3.4 mmol/L (3.5-5.1)
[2022-06-23 15:11] LABS: ALBUMIN 3.4 g/dL (3.5-5.0); MAGNESIUM 2.1 mg/dL (1.80-2.40); TOTAL PROTEIN, SERUM 6.6 g/dL (6.0-8.3)
[2022-06-23] MEDS ORDERED: FUROSEMIDE 40MG VIAL IV STA (17:04)
[2022-06-23] MEDS ORDERED: POTASSIUM BICARB/CIT AC 25 MEQ TABLET.EFF PO STA (17:05)
[2022-06-23] MEDS ORDERED: LACTULOSE 20 GM/30 ML UDCUP PO PRN (19:00)
[2022-06-23] MEDS ORDERED: ACETAMINOPHEN 325 MG TAB PO PRN ×2 (19:00)
[2022-06-23] MEDS ORDERED: POTASSIUM CHLORIDE 10MEQ/100ML 100 ML IV PRN (19:00)
[2022-06-23] MEDS ORDERED: LIDOCAINE HCL-MPF 1% 2ML VIAL IV PRN (19:00)
[2022-06-23] MEDS ORDERED: ONDANSETRON 4MG INJ IV PRN (19:00)
[2022-06-23] MEDS ORDERED: POTASSIUM CHLORIDE 10% ELIXIR 20 MEQ/15 ML UDCUP PO PRN (19:00)
[2022-06-23] MEDS: FAMOTIDINE 20MG TAB PO SCH (21:21)
[2022-06-23] MEDS: KCL 20 MEQ ERTAB PO PRN (21:21)
[2022-06-23] MEDS: FUROSEMIDE 20MG VIAL IV SCH (21:22)
[2022-06-23 23:15] VITALS: BP 150/101
[2022-06-23] MEDS ORDERED: FERR-72 PO (23:51)
[2022-06-23] MEDS ORDERED: APIX5TAB PO (23:51)
[2022-06-23] MEDS ORDERED: FURO40TA5 PO (23:51)
[2022-06-23] MEDS ORDERED: ATOR40TA69 PO (23:51)
[2022-06-23] MEDS ORDERED: VITA-328 PO (23:51)
[2022-06-23] MEDS ORDERED: METO-408 PO (23:51)
[2022-06-23] MEDS ORDERED: GABA300S PO (23:51)
[2022-06-23] MEDS ORDERED: NAPR-1023 PO (23:51)
[2022-06-23] MEDS ORDERED: TAMS-1 PO (23:51)
[2022-06-23] MEDS ORDERED: LISI20TA24 PO (23:51)
[2022-06-24] MEDS: KCL 20 MEQ ERTAB PO PRN ×2 (00:02→15:35)
[2022-06-24 04:17] VITALS: BP 153/102
[2022-06-24 04:41] LABS: BASOPHILS % (AUTO) 0.4 % (0.0-5.0); HEMATOCRIT 40.5 % (42-54); LYMPHOCYTES % (AUTO) 14.5 % (21.0-51.0); MEAN CORPUSCULAR HEMOGLOBIN 30.2 pg (27.0-33.0); MEAN CORPUSCULAR HGB CONC 32.8 g/dL (32.0-36.0); MONOCYTES % (AUTO) 6.3 % (3.0-13.0); NEUTROPHILS % (AUTO) 75.5 % (40.0-77.0); PLATELET COUNT (AUTO) 170 K/uL (130-400); RED CELL DISTRIBUTION WIDTH 15.5 % (11.0-15.5); WHITE BLOOD COUNT (AUTO) 9.1 K/uL (4.8-10.8)
[2022-06-24 04:52] LABS: B-TYPE NATRIURETIC PEPTIDE 1090 pg/mL (0-100)
[2022-06-24 04:55] LABS: CREATININE 1.3 mg/dL (0.5-1.5); POTASSIUM 3.8 mmol/L (3.5-5.1)
[2022-06-24] MEDS: FUROSEMIDE 20MG VIAL IV SCH ×3 (06:42→21:06)
[2022-06-24 08:00] VITALS: BP 157/91
[2022-06-24] MEDS: FAMOTIDINE 20MG TAB PO SCH ×2 (09:05→21:06)
[2022-06-24] MEDS: ENOXAPARIN SODIUM 40 MG/0.4 ML SYRINGE SQ SCH (09:05)
[2022-06-24 12:00] VITALS: BP 156/82
[2022-06-24 16:00] VITALS: BP 166/94
[2022-06-24] MEDS ORDERED: ACETAZOLAMIDE SODIUM 500 MG VIAL IV SCH (16:00)
[2022-06-24 20:00] VITALS: BP 151/99
[2022-06-24] MEDS ORDERED: TRAZODONE HCL 50 MG TAB PO SCH (21:00)
[2022-06-24] MEDS ORDERED: APIXABAN 5 MG TABLET PO SCH (21:00)
[2022-06-24] MEDS ORDERED: ATORVASTATIN 40 MG TABLET PO SCH (21:00)
[2022-06-24] MEDS: ACETAZOLAMIDE SODIUM 500 MG VIAL IV SCH (21:05)
[2022-06-24] MEDS: GABAPENTIN 300 MG CAPSULE PO SCH (21:06)
[2022-06-24] MEDS: SACUBITRIL/VALSARTAN 1 EACH TABLET PO SCH (21:06)
[2022-06-25] VITALS: BP 141/85
[2022-06-25 05:20] LABS: CREATININE 1.4 mg/dL (0.5-1.5); MAGNESIUM 2.2 mg/dL (1.80-2.40); POTASSIUM 3.2 mmol/L (3.5-5.1)
[2022-06-25] MEDS: KCL 20 MEQ ERTAB PO PRN ×2 (05:46→11:36)
[2022-06-25 08:00] VITALS: BP 130/83
[2022-06-25] MEDS ORDERED: TAMSULOSIN HCL 0.4 MG CAP.ER.24H PO SCH (09:00)
[2022-06-25] MEDS ORDERED: VITAMIN B COMPLEX 1 CAPSULE PO SCH (09:00)
[2022-06-25] MEDS ORDERED: METOPROLOL SUCCINATE 25 MG TAB.SR.24H PO SCH (09:00)
[2022-06-25] MEDS: ENOXAPARIN SODIUM 40 MG/0.4 ML SYRINGE SQ SCH (09:54)
[2022-06-25] MEDS: SACUBITRIL/VALSARTAN 1 EACH TABLET PO SCH (09:54)
[2022-06-25] MEDS: FAMOTIDINE 20MG TAB PO SCH (09:54)
[2022-06-25] MEDS: GABAPENTIN 300 MG CAPSULE PO SCH (09:55)
[2022-06-25] MEDS: FUROSEMIDE 20MG VIAL IV SCH ×2 (09:55→14:19)
[2022-06-25] MEDS: ACETAZOLAMIDE SODIUM 500 MG VIAL IV SCH (10:06)
[2022-06-25 11:48] VITALS: BP 116/77
[2022-06-25] MEDS ORDERED: TRAZ-253 PO (11:50)
[2022-06-25] MEDS ORDERED: SACU1TAB PO (11:50)
[2022-06-25] MEDS ORDERED: POTASSIUM CHLORIDE 10% ELIXIR 20 MEQ/15 ML UDCUP PO SCH (12:00)
== END 2022-06-25 14:53 | disposition home or self-care (01) | DRG 291 ==
LOC: EDH 13:58 → EDHIP 18:50 → 4BH 23:15
PROVIDERS: ADMIT Internal Medicine; ATTEND Internal Medicine
DX: I11.0 Hypertensive heart disease with heart failure (principal); I50.23 Acute on chronic systolic (congestive) heart failure; I48.91 Unspecified atrial fibrillation; E87.6 Hypokalemia; E11.9 Type 2 diabetes mellitus without complications; E78.00 Pure hypercholesterolemia, unspecified; Z82.3 Family history of stroke; Z95.1 Presence of aortocoronary bypass graft; Z95.0 Presence of cardiac pacemaker; Z86.73 Personal history of transient ischemic attack (TIA), and cerebral infarction without residual deficits; Z82.49 Family history of ischemic heart disease and other diseases of the circulatory system
CPT/HCPCS: 36415; 71045; 80048; 80053; 83735; 83880; 84484; 85025; 93005; 93306; G0378; J1120; J1650; J1940

== ENCOUNTER → 2022-07-06 | Outpatient (CLI) | payer OTHER ==
[~2022-07-06] MED LIST changes: +ATOR40TA69 PO; -ATOR40TA71 PO; +FERR-72 PO; +FURO40TA5 PO; -FURO40TA7 PO; +GABA300S PO; -LISI20TA24 PO; -METO-391 PO; +METO-408 PO; +SACU1TAB PO; +TRAZ-253 PO; +VITA-328 PO
[2022-07-06 13:14] LABS: CREATININE 1.2 mg/dL (0.5-1.5)
== END | disposition home or self-care (01) ==
LOC: LAB 09:58
PROVIDERS: ATTEND Internal Medicine Cardiovascular Disease
DX: I10 Essential (primary) hypertension (principal)
CPT/HCPCS: 36415; 80048

== ENCOUNTER → 2022-07-07 | Outpatient (CLI) | payer OTHER ==
[~2022-07-07] MED LIST changes: +REGADENOSON 0.4 MG/5 ML PF SYG IVP SCH
== END | disposition home or self-care (01) ==
LOC: SHCH 08:24
PROVIDERS: ATTEND Internal Medicine Cardiovascular Disease
DX: I11.0 Hypertensive heart disease with heart failure (principal); I50.9 Heart failure, unspecified; I25.9 Chronic ischemic heart disease, unspecified; I25.10 Atherosclerotic heart disease of native coronary artery without angina pectoris; I25.2 Old myocardial infarction; I48.0 Paroxysmal atrial fibrillation; I42.0 Dilated cardiomyopathy; Z95.1 Presence of aortocoronary bypass graft; Z95.810 Presence of automatic (implantable) cardiac defibrillator; Z79.01 Long term (current) use of anticoagulants; Z79.899 Other long term (current) drug therapy
CPT/HCPCS: 78452; 96374; 93017; J2785; A9500 ×2

== ENCOUNTER → 2022-07-20 | Outpatient (CLI) | payer OTHER ==
[~2022-07-20] MED LIST changes: -REGADENOSON 0.4 MG/5 ML PF SYG IVP SCH
[2022-07-20 12:56] LABS: CREATININE 1.2 mg/dL (0.5-1.5); POTASSIUM 3.9 mmol/L (3.5-5.1)
== END | disposition home or self-care (01) ==
LOC: LAB 10:26
PROVIDERS: ATTEND Internal Medicine Cardiovascular Disease
DX: I10 Essential (primary) hypertension (principal)
CPT/HCPCS: 36415; 80048

== ENCOUNTER 2022-08-11 05:35 | Day surgery (SDC) | payer OTHER ==
[2022-08-07 14:24] LABS: BASOPHILS % (AUTO) 0.6 % (0.0-5.0); EOSINOPHILS % (AUTO) 3.5 % (0.0-8.0); HEMATOCRIT 44.6 % (42-54); MEAN CORPUSCULAR HEMOGLOBIN 29.8 pg (27.0-33.0); MEAN CORPUSCULAR HGB CONC 33.6 g/dL (32.0-36.0); MEAN CORPUSCULAR VOLUME 88.5 fL (79-99); MONOCYTES % (AUTO) 10.6 % (3.0-13.0); PLATELET COUNT (AUTO) 145 K/uL (130-400); RED BLOOD CELL COUNT(AUTO) 5.04 MIL/uL (4.50-6.20); RED CELL DISTRIBUTION WIDTH 13.9 % (11.0-15.5); WHITE BLOOD COUNT (AUTO) 6.4 K/uL (4.8-10.8)
[2022-08-07 14:30] LABS: APPEARANCE,URINE CLEAR (CLEAR); BILIRUBIN,URINE NEGATIVE (NEGATIVE); COLOR,URINE LIGHT-YELLOW (YELLOW); GLUCOSE, URINE (UA) NEGATIVE (NEGATIVE); KETONES,URINE NEGATIVE (NEGATIVE); LEUKOCYTE ESTERASE ,URINE NEGATIVE Leu/uL (NEGATIVE); NITRATE,URINE NEGATIVE (NEGATIVE); OCCULT BLOOD,URINE NEGATIVE (NEGATIVE); PROTEIN,URINE NEGATIVE (NEGATIVE); UROBILINOGEN,URINE 0.2 mg/dL (0.2-1.0)
[2022-08-07 14:35] LABS: CREATININE 1.3 mg/dL (0.5-1.5); POTASSIUM 4.7 mmol/L (3.5-5.1)
[2022-08-07 14:38] LABS: INR 1.08 (0.85-1.15); PROTHROMBIN TIME 11.7 SEC (9.6-11.6)
[2022-08-07 14:39] LABS: PARTIAL THROMBOPLASTIN TIME 32.9 SEC (26.3-35.5)
[2022-08-07 15:15] LABS: B-TYPE NATRIURETIC PEPTIDE 928 pg/mL (0-100)
[2022-08-07 16:37] VITALS: BP 108/74
[2022-08-11] VITALS (10 sets, daily range): BP systolic 126–147; BP diastolic 79–95
[~2022-08-11] VITALS: Ht 172.7 cm; Wt 85.0 kg
[~2022-08-11 05:35] MED LIST changes: -ASPI-1443 PO; +NAPR-1023 PO; -TRAZ-253 PO
[2022-08-11] MEDS ORDERED: 0.9%NACL 1000ML 1,000 ML IV ONE (07:11)
[2022-08-11] MEDS ORDERED: LIDOCAINE HCL 400MG/20ML VIAL ONE (09:21)
[2022-08-11] MEDS ORDERED: IOHEXOL-350 50ML VIAL IV ONE (09:21)
[2022-08-11] MEDS ORDERED: IOHEXOL 350 MG/ML 100ML INFUS..BTL IV ONE (09:21)
[2022-08-11] MEDS ORDERED: HEPARIN 10,000 UNIT/10ML (1,000 UNIT/ML) VIAL ONE (09:21)
[2022-08-11] MEDS ORDERED: NITROGLYCERIN 50MG VIAL ONE (09:21)
[2022-08-11] MEDS ORDERED: MIDAZOLAM HCL 1 MG/ML 2ML VIAL ONE (09:49)
[2022-08-11] MEDS ORDERED: DEXTROSE 50%-WATER 50 ML DISP.SYRIN IV PRN (11:00)
[2022-08-11] MEDS ORDERED: GLUCAGON 1MG KIT 1 MG ML IM PRN (11:00)
== END 2022-08-11 15:00 | disposition home or self-care (01) ==
LOC: DAH 05:35
PROVIDERS: ATTEND Internal Medicine Cardiovascular Disease
DX: I25.10 Atherosclerotic heart disease of native coronary artery without angina pectoris (principal); I25.82 Chronic total occlusion of coronary artery; I11.0 Hypertensive heart disease with heart failure; I50.22 Chronic systolic (congestive) heart failure; I25.5 Ischemic cardiomyopathy; I25.2 Old myocardial infarction; I48.0 Paroxysmal atrial fibrillation; E78.5 Hyperlipidemia, unspecified; Z87.891 Personal history of nicotine dependence; Z95.5 Presence of coronary angioplasty implant and graft; Z79.01 Long term (current) use of anticoagulants; Z79.899 Other long term (current) drug therapy
CPT/HCPCS: 80048; 83880; 85025; 85610; 85730; 81003; 36415; 71045; 93005; 93459; C1769; C1894; C1760; J3490 ×2; J7030; J2250; J1644; Q9967 ×2; A4215; A4222; A4221; A4663; A4216; A4606; Q9965 ×2; A4223 ×3; 99156; 99157

== ENCOUNTER → 2022-09-17 | Outpatient (CLI) | payer OTHER ==
[~2022-09-17] MED LIST changes: -NAPR-1023 PO
== END | disposition home or self-care (01) ==
LOC: SHCH 15:21
PROVIDERS: ATTEND Internal Medicine Cardiovascular Disease
DX: I08.8 Other rheumatic multiple valve diseases (principal); I10 Essential (primary) hypertension; I48.0 Paroxysmal atrial fibrillation; E78.5 Hyperlipidemia, unspecified
CPT/HCPCS: 93306

== ENCOUNTER 2025-03-03 11:13 | Emergency (ER) | payer OTHER ==
[~2025-03-03] VITALS: Ht 172.7 cm; Wt 83.5 kg
[~2025-03-03 11:13] MED LIST changes: -GABA300S PO; +GABA300S3 PO; -TAMS-1 PO; +TAMS-55 PO
--- NOTE | 2025-03-03 11:17 | ERN ---
General Chief Complaint: Dizzy/Light Headed Stated Complaint: DIZZINESS AND CHEST PAIN Time Seen by MD: 11:14 Time Seen by Midlevel: 11:14 Source: patient History of Present Illness Initial Comments Patient is a 74-year-old male presenting to the emergency department for evaluation dizziness. The patient states had one episode of dizziness after he turned his head. The episode lasted several seconds and resolved on its own. He also reports having chest pain for the last couple days however on arrival specifically denies having any active dizziness or active chest pain. Allergies: Coded Allergies: No Known Drug Allergies (Verified Allergy, 06/07/13) Home Meds Active Scripts Sacubitril/Valsartan (Entresto 24 mg-26 mg Tablet) 1 Each Tablet, 1 EACH PO BID for SYSTOLIC HEART FAILURE for 30 Days, #60 TAB 1 Refill Prov:STEWART GOMEZ Jr., MD 06/25/22 Spironolactone (Aldactone) 25 Mg Tablet, 25 MG PO DAILY, #30 TAB 5 Refills Prov:REED HERNANDEZ MD 04/18/19 Reported Medications Vitamin B Complex (B Complex) 1 Each Tablet, 1 EACH PO DAILY for MULTIVATIMINS, TAB 06/23/22 Apixaban (Eliquis) 5 Mg Tablet, 5 MG PO BID for BLOOD THINNER, TAB START TAKING ELIQUIS ON 08/12/22 06/23/22 Gabapentin (Gabapentin) 300 Mg/6 Ml Solution, 300 MG PO BID for NEUROPATHY, ML 06/23/22 Atorvastatin Calcium (LIPITOR) 40 Mg Tablet, 40 MG PO HS for HIGH CHOLESTEROL, TAB 06/23/22 Tamsulosin HCl (Flomax) 0.4 Mg Cap.er.24h, 0.4 MG PO DAILY for PROSTATE, CAPSULE.DR 06/23/22 Furosemide (Furosemide) 40 Mg Tablet, 40 MG PO BID for DIURETIC, TAB 06/23/22 Ferrous Sulfate (Ferrous Sulfate) 325 Mg Tablet, 325 MG PO DAILY for LOW IRON, TAB 06/23/22 Metoprolol Succinate (Metoprolol Succinate) 25 Mg Tab.er.24h, 25 MG PO DAILY for HIGH BLOOD PRESSURE, TAB 06/23/22 Past Medical History Past Medical History: Diabetes-Type II, High Cholesterol, Heart Disease, Hypertension Past Surgical History: CABG, Pacer/AICD Surgical History Other: HEAR STENTS Social History Social History: Negative, Lives with family ROS Dictation CONSTITUTIONAL: Negative except for HPI HEAD/FACE: Negative except for HPI EENT: Negative except for HPI RESPIRATORY: Negative except for HPI GASTROINTESTINAL/ABDOMINAL: Negative except for HPI GENITOURINARY: Negative except for HPI MUSCULOSKELETAL: Negative except for HPI INTEGUMENTARY: Negative except for HPI NEUROLOGICAL/PSYCH: Negative except for HPI HEMATOLOGIC/LYMPHATIC: Negative except for HPI All Systems Negative, Except as noted above. 13 point review of systems assessed and all negative except for above. Physical Exam Physical Exam Dictation Vital Signs reviewed General Appearance: Alert, oriented x 3, no acute distress, well developed, nourished. Head and Face: non-traumatic. Eyes: PERRL, pink conjunctivas, eyelid no trauma, anterior chamber with arcus senilis. Ears: Pinnas intact and no signs of trauma or erythema ear canals clear and no discharge TM no erythema Nose: No discharge, no bleeding. Oropharynx: Mouth normal, tongue pink, pharynx clear,no erythema, tonsils no exudates, no abscesses noted, mucous membrane moist Neck: Supple, non-tender, no thyromegaly, no masses, no JVD, no bruits Breast:Deferred Chest:No tenderness, no crepitus, no paradoxical movement, no retractions Lungs:Clear, well-ventilated, symmetric, no rales, no wheezing, no rhonchi, no stridor, good breath sounds bilaterally Heart: Regular rate, regular rhythm, no murmur, no gallops Vascular: no peripheral edema, Abdomen: Soft, positive bowel sounds, nondistended, no guarding, nontender, no rebound, no masses no hepatomegaly, no splenomegaly, no Zuniga's sign, no hernias. Rectal: Deferred Genital: Deferred Neurological: Normal speech, motor function intact, sensory function intact Musculoskeletal: Neck nontender, full range of motion, back nontender, full range of motion, Extremities: nontender, full range of motion Skin: Color pink, dry, no turgor, no rash, no lacerations, no abrasions, no contusions. Lymphatic: Deferred Results Laboratory and Microbiology Lab and Micro Result Laboratory Tests Test 03/03/25 11:36 White Blood Count 5.4 K/uL (4.8-10.8) Red Blood Count 4.29 MIL/uL (4.50-6.20) L Hemoglobin 12.9 g/dL (14.0-18.0) L Hematocrit 38.4 % (42-54) L Mean Corpuscular Volume 89.5 fL (79-99) Mean Corpuscular Hemoglobin 30.1 pg (27.0-33.0) Mean Corpuscular Hemoglobin Concent 33.6 g/dL (32.0-36.0) Red Cell Distribution Width 13.8 % (11.0-15.5) Platelet Count 149 K/uL (130-400) Mean Platelet Volume 10.0 fL (7.5-10.5) Immature Granulocyte % (Auto) 0.4 % (0-1) Neutrophils (%) (Auto) 70.7 % (40.0-77.0) Lymphocytes (%) (Auto) 19.3 % (21.0-51.0) L Monocytes (%) (Auto) 6.1 % (3.0-13.0) Eosinophils (%) (Auto) 2.9 % (0.0-8.0) Basophils (%) (Auto) 0.6 % (0.0-5.0) Neutrophils # (Auto) 3.9 K/uL (1.8-7.7) Lymphocytes # (Auto) 1.1 K/uL (1.0-4.8) Monocytes # (Auto) 0.3 K/uL (0.1-1.0) Eosinophils # (Auto) 0.16 K/uL (0.00-0.70) Basophils # (Auto) 0.03 K/uL (0.00-0.20) Absolute Immature Granulocyte (auto 0.02 K/uL (0-1) Nucleated Red Blood Cells 0.0 % (0.0-0.19) Sodium Level 139 mmol/L (136-145) Potassium Level 3.5 mmol/L (3.5-5.1) Chloride Level 102 mmol/L (101-111) Carbon Dioxide Level 31 mmol/L (21-32) Blood Urea Nitrogen 17 mg/dL (7-18) Creatinine 1.0 mg/dL (0.5-1.3) Glomerular Filtration Rate Calc 80 mL/min (>90) Random Glucose 148 mg/dL (70-105) H Total Calcium 8.5 mg/dL (8.5-10.1) Magnesium Level 1.90 mg/dL (1.80-2.40) Troponin I High Sensitivity 18 ng/L (4-75) Labs Reviewed?: Yes MDM MDM: Patient is a 74-year-old male presenting to the emergency department for evaluation dizziness. The patient states had one episode of dizziness after he turned his head. The episode lasted several seconds and resolved on its own. He also reports having chest pain for the last couple days however on arrival specifically denies having any active dizziness or active chest pain. On physical examination patient is in no acute distress. He has a GCS of 15. NIH of 0. No active chest pain or dizziness in the emergency department however I obtain basic blood work to assess for severe anemia or electrolyte abnormalities. CBC shows no leukocytosis. Hemoglobin is stable at 12 nine. Chemistries are unremarkable. Normal renal function. CT scan of the head was obtained to rule out any intracranial abnormalities however scan shows no acute findings. Symptoms and physical examination are consistent with vertigo. We will discharged home on meclizine. Patient will need follow up outpatient for further evaluation. Differential diagnosis: Vertigo, intracranial bleed, dehydration, anemia There are no social concerns with this patient. Prescription drug management Prescriptions will include: Meclizine Medical management and examination interpretation discussions were had by me with other qualified healthcare professionals as indicated for the patient's care. ED Course Orders Procedure Category Date Status Time 12 Lead Ekg Tracing- EKG 03/03/25 Logged Technical 11:14 Cbc With Differential LAB 03/03/25 Complete 11:14 Basic Metabolic Panel LAB 03/03/25 Complete 11:14 Magnesium LAB 03/03/25 Complete 11:14 Troponin I High LAB 03/03/25 Complete Sensitivity 11:14 Ct Head/Brain W/O CT 03/03/25 Resulted Contrast 11:14 Vital Signs Date Time Temp Pulse Resp B/P (MAP) Pulse Ox O2 Delivery O2 Flow Rate FiO2 03/03/25 11:59 98.1 63 17 118/71 96 Room Air* 0 21 03/03/25 11:14 98.2 56 20 120/75 99 Room Air DX & DISP Disposition: Discharge Departure Impression: Primary Impression: Vertigo Additional Impression: Non-cardiac chest pain Condition: Stable Scripts Meclizine HCl (Meclizine HCl) 25 Mg Tablet 25 MG PO TID for vertigo, #30 TAB 0 Refills Prov: ABI RICHARDS 03/03/25 Additional Instructions: Your blood work today is unremarkable. There is no evidence of anemia. Renal function is normal. Electrolytes are normal. Cardiac enzymes and EKG did not show any evidence of a heart attack. CT scan of the head does not show any acute changes. Referrals: YUDITH VERA MD (PCP) CHRISTIE BARNES MD I have reviewed the case, and I agree with, Diagnosis and Plan I performed the substantive portion of the visit. I have reviewed and personally made and approve the management plan that is documented in the note by myself or the BAUDILIO. I acknowledge for responsibility for the patient's management plan. ABI RICHARDS Mar 03, 2025 11:17
[2025-03-03 11:55] LABS: IMMATURE GRANULOCYTE ABSOLUTE 0.02 K/uL (0-1); NUCLEATED RED BLOOD CELLS 0.0 % (0.0-0.19); PLATELET COUNT (AUTO) 149 K/uL (130-400); RED BLOOD CELL COUNT(AUTO) 4.29 MIL/uL (4.50-6.20); RED CELL DISTRIBUTION WIDTH 13.8 % (11.0-15.5); WHITE BLOOD COUNT (AUTO) 5.4 K/uL (4.8-10.8)
[2025-03-03 12:02] LABS: CREATININE 1.0 mg/dL (0.5-1.3); GLOMERULAR FILTR. RATE CALC 80.0 mL/min (>90); GLUCOSE,RANDOM 148.0 mg/dL (70-105); SODIUM SERUM 139.0 mmol/L (136-145); UREA NITROGEN, BLOOD 17.0 mg/dL (7-18)
--- NOTE | 2025-03-03 12:08 | HMCIMG ---
EXAM: CT Head Without IV contrast. CLINICAL HISTORY: dizziness TECHNIQUE: Axial computed tomography images of the head/brain without intravenous contrast. COMPARISON: None provided. FINDINGS: BRAIN: No acute infarct. Chronic ischemic and atrophic changes. VENTRICLES: No hydrocephalus. ORBITS: The orbits are unremarkable. SINUSES AND MASTOIDS: The paranasal sinuses and mastoid air cells are clear. BONES: No fracture. SOFT TISSUES: Unremarkable. IMPRESSION: No acute infarct. Chronic ischemic and atrophic changes. /[place]
[2025-03-03] MEDS ORDERED: MECL-302 PO (12:48)
[2025-03-03 13:13] VITALS: BP 123/68; PULSE 66; RESP 16; TEMP 98.1; O2SAT 97
--- NOTE | 2025-03-03 14:14 | EKG ---
[facility] Test Date: 2025-03-03 Test Time: 11:05:46 Pat Name: CHAD WHITT Department: ED Room: Gender: M [employer]: [id number] : 1950 Requested By: ABI RICHARDS Order Number: [id number] Reading MD: Van Owusu Measurements Intervals War Rate: 69 P: 0 OK: 46 QRS: -84 QRSD: 201 T: 107 QT: 525 QTc: 565 Interpretive Statements Ventricular-paced complexes Compared to ECG 08/07/2022 14:06:47 No significant changes Electronically Signed On 03-03-2025 16:39:41 CDT by Van Owusu Please click the below link to view image of tracing.
== END 2025-03-03 13:22 | disposition home or self-care (01) ==
LOC: EDH 11:13
DX: R42 Dizziness and giddiness (principal); R07.89 Other chest pain; E11.9 Type 2 diabetes mellitus without complications; I11.9 Hypertensive heart disease without heart failure; E78.00 Pure hypercholesterolemia, unspecified; Z79.01 Long term (current) use of anticoagulants; Z79.899 Other long term (current) drug therapy; Z95.1 Presence of aortocoronary bypass graft; Z95.810 Presence of automatic (implantable) cardiac defibrillator
CPT/HCPCS: 36415; 70450; 80048; 83735; 84484; 85025; 93005; 99284